=== PATIENT | female | born 1990 | race Caucasian/White ===

== ENCOUNTER 2019-03-02 15:32 | Emergency (ER) | payer MEDICAID ==
[~2019-03-02] VITALS: Ht 165.1 cm; Wt 78.9 kg
[2019-03-02 15:51] VITALS: Ht 165.1 cm; Wt 78.9 kg
[2019-03-02 17:42] VITALS: BP 121/62
== END 2019-03-02 17:42 | disposition home or self-care (01) ==
LOC: ED 15:32
DX: T23.101A Burn of first degree of right hand, unspecified site, initial encounter (principal); X12.XXXA Contact with other hot fluids, initial encounter; Y93.89 Activity, other specified; Y92.89 Other specified places as the place of occurrence of the external cause; Y99.8 Other external cause status

== ENCOUNTER 2019-03-21 15:58 | Emergency (ER) | payer MEDICAID ==
[~2019-03-21] VITALS: Ht 165.1 cm; Wt 78.5 kg
[2019-03-21 16:03] VITALS: BP 114/82; Ht 165.1 cm; Wt 78.5 kg
== END 2019-03-21 21:54 | disposition home or self-care (01) ==
LOC: ED 15:58
DX: G43.911 Migraine, unspecified, intractable, with status migrainosus (principal); M19.90 Unspecified osteoarthritis, unspecified site
CPT/HCPCS: Q0162

== ENCOUNTER 2020-03-03 15:30 | Emergency (ER) | payer MEDICAID ==
[~2020-03-03] VITALS: Ht 160 cm; Wt 77.1 kg
[2020-03-03 15:39] VITALS: Ht 160 cm; Wt 77.1 kg
[2020-03-03 16:58] LABS: CALCIUM 8.4 mg/dL (8.5-10.1); CARBON DIOXIDE 24.5 mmol/L (21-32); CHLORIDE SERUM 104 mmol/L (98-107); CREATININE SERUM 0.6 mg/dL (0.6-1.0); GFR1 > 60 mL/min; GLUCOSE SERUM 80 mg/dL (74-106); POTASSIUM SERUM 3.3 mmol/L (3.5-5.1); SODIUM SERUM 138 mmol/L (136-145)
[2020-03-03 17:00] LABS: ALKALINE PHOSPHATASE 54 U/L (46-116); ALT/SGPT 14 U/L (14-59); AST/SGOT 9 U/L (15-37); BILIRUBIN DIRECT 0.03 mg/dL (0.0-0.2); BILIRUBIN TOTAL 0.13 mg/dL (0.20-1.00); LIPASE 71 IU/L (73-393); TOTAL PROTEIN, SERUM 6.8 g/dL (6.4-8.2)
[2020-03-03 17:02] LABS: ALBUMIN 2.9 g/dL (3.4-5.0); BASOPHIL % 0.2 % (0-2); PLATELET COUNT 242 x10^3mcL (130-400); RED CELL DISTRIBUTION WIDTH 14.1 % (11.5-14.5)
[2020-03-03 17:34] VITALS: BP 116/69
== END 2020-03-03 17:34 | disposition home or self-care (01) ==
LOC: ED 15:30
PROVIDERS: Student in an Organized Health Care Education/Training Program
DX: O99.012 Anemia complicating pregnancy, second trimester (principal); R10.9 Unspecified abdominal pain; R51 Headache; R11.0 Nausea; R53.83 Other fatigue; R42 Dizziness and giddiness; Z3A.15 15 weeks gestation of pregnancy

== ENCOUNTER 2020-03-25 15:14 | Emergency (ER) | payer MEDICAID, SELFPAY ==
[~2020-03-25] VITALS: Ht 165.1 cm; Wt 78.0 kg
[2020-03-25 15:15] VITALS: Ht 165.1 cm; Wt 78.0 kg
[2020-03-25 16:49] VITALS: BP 109/69
== END 2020-03-25 16:49 | disposition home or self-care (01) ==
LOC: ED 15:14
DX: O99.512 Diseases of the respiratory system complicating pregnancy, second trimester (principal); J40 Bronchitis, not specified as acute or chronic; Z3A.18 18 weeks gestation of pregnancy; Z20.828 Contact with and (suspected) exposure to other viral communicable diseases
CPT/HCPCS: U0003-CS